=== PATIENT | male | born 1995 | race African-American/Black ===

== ENCOUNTER 2018-12-08 19:24 | Emergency (ER) | payer OTHER ==
--- NOTE | 2018-12-08 20:51 | RAD ---
THREE VIEWS OF THE LEFT SHOULDER: 12/08/18 COMPARISON: None. HISTORY: Possible dislocation, pain. FINDINGS: No widening of the acromioclavicular or coracoclavicular interspace. No displaced fracture or evidenc e of dislocation. IMPRESSION: No acute findings. POS: OFF
[2018-12-08] MEDS ORDERED: Ketorolac Tromethamine 30 MG/ML VIAL ONE (20:56)
== END 2018-12-08 20:45 | disposition still patient (30) ==
LOC: EEVIPCON 19:24 → ERS 19:24
DX: S43.005A Unspecified dislocation of left shoulder joint, initial encounter (principal); W18.2XXA Fall in (into) shower or empty bathtub, initial encounter; Y92.002 Bathroom of unspecified non-institutional (private) residence as the place of occurrence of the external cause
CPT/HCPCS: 23650; 96372; J1885